=== PATIENT | female | born 2000 | race African-American/Black ===

== ENCOUNTER 2021-10-28 15:07 | Emergency (ER) | payer OTHER ==
[~2021-10-28] VITALS: Ht 170.2 cm; Wt 63.0 kg
[2021-10-28] MEDS ORDERED: KETOROLAC 30MG/ML VIAL IV STA (15:49)
[2021-10-28] MEDS ORDERED: FAMOTIDINE 20MG/2ML VIAL IV STA (15:49)
[2021-10-28] MEDS ORDERED: ONDANSETRON HCL 4MG/2ML INJ IV STA (15:49)
[2021-10-28] MEDS ORDERED: SODIUM CHLORIDE 0.9% 1,000 ML IV ONE (16:00)
[2021-10-28 16:38] LABS: BASOPHILS % 0.9 % (0.0-2.0); CHLORIDE 103 mEq/L (98-107); EOSINOPHILS % 0.7 % (0.0-5.0); HEMATOCRIT. 40.7 % (36.0-48.0); HEMOGLOBIN. 13.9 g/dL (12.0-16.0); LYMPHOCYTES % 24.6 % (20.0-50.0); MEAN CORPUSCULAR HEMOGLOBIN 31.7 pg (28.0-32.0); MEAN CORPUSCULAR VOLUME 93.2 fL (81.0-99.0); MONOCYTES % 7.9 % (2.0-8.0); NEUTROPHILS % 65.9 % (40.0-76.0); RED BLOOD CELL COUNT 4.37 mill/uL (4.2-5.4)
[2021-10-28 16:40] LABS: INR 1.1; PROTHROMBIN TIME 11.4 sec (9.6-11.0)
[2021-10-28 16:44] VITALS: BP 125/47
[2021-10-28 17:19] LABS: MEAN PLATELET VOLUME 11.8 fl (7.4-10.4); PLATELET 112 x1000/uL (130-400)
== END 2021-10-28 18:23 | disposition home or self-care (01) ==
LOC: ER 15:36
DX: R51.9 Headache, unspecified (principal); R55 Syncope and collapse; F12.10 Cannabis abuse, uncomplicated
CPT/HCPCS: 36415; 71045; 80053; 85025; 85610; 93005; 96361; 96374; 96375; 99285; J1885; J2405; J3490; J7030

== ENCOUNTER 2021-11-29 06:40 | Emergency (ER) | payer OTHER ==
[~2021-11-29] VITALS: Ht 162.6 cm; Wt 68.0 kg
[2021-11-29] MEDS ORDERED: ONDANSETRON HCL 4MG/2ML INJ IV STA (06:48)
[2021-11-29] MEDS ORDERED: SODIUM CHLORIDE 0.9% 1,000 ML IV ONE (07:00)
[2021-11-29 07:44] LABS: BASOPHILS % 0.4 % (0.0-2.0); EOSINOPHILS % 0.1 % (0.0-5.0); HEMATOCRIT. 41.5 % (36.0-48.0); HEMOGLOBIN. 13.9 g/dL (12.0-16.0); LYMPHOCYTES % 17.2 % (20.0-50.0); MEAN CORPUSCULAR HEMOGLOBIN 31.5 pg (28.0-32.0); MEAN CORPUSCULAR VOLUME 94.1 fL (81.0-99.0); MONOCYTES % 4.3 % (2.0-8.0); RED BLOOD CELL COUNT 4.41 mill/uL (4.2-5.4); RED CELL DISTRIBUTION WIDTH 12.8 % (11.6-14.6)
[2021-11-29 07:59] LABS: CHLORIDE 105 mEq/L (98-107)
[2021-11-29 08:02] LABS: HCG SCREEN NEGATIVE
[2021-11-29 08:28] LABS: MEAN PLATELET VOLUME 10.7 fl (7.4-10.4); PLATELET 98 x1000/uL (130-400)
[2021-11-29] MEDS ORDERED: TOPUD PO (09:39)
[2021-11-29] MEDS ORDERED: ONDA4TAB50 PO (09:39)
[2021-11-29 10:00] VITALS: BP 112/76
== END 2021-11-29 11:21 | disposition home or self-care (01) ==
LOC: ER 06:40
DX: K52.9 Noninfective gastroenteritis and colitis, unspecified (principal)
CPT/HCPCS: 36415; 74176; 80053; 84703; 85025; 96361; 96374; 99284; J2405; J7030

== ENCOUNTER 2022-08-23 15:10 | Emergency (ER) | payer MEDICAID, OTHER ==
[~2022-08-23] VITALS: Ht 157.5 cm; Wt 64.0 kg
[~2022-08-23 15:10] MED LIST: ONDA4TAB50 PO; TOPUD PO
[2022-08-23 15:18] VITALS: BP 129/81; PULSE 81; RESP 18; TEMP 98; O2SAT 98
[2022-08-23] MEDS ORDERED: FAMOTIDINE 20MG TABLET PO ONE (16:15)
[2022-08-23] MEDS ORDERED: PREDNISONE 20MG TABLET PO ONE (16:15)
[2022-08-23] MEDS ORDERED: DIPHENHYDRAMINE 25MG CAPSULE PO ONE (16:15)
== END 2022-08-23 18:02 | disposition left against medical advice (07) ==
LOC: ER 15:10
DX: Z86.59 Personal history of other mental and behavioral disorders (principal)
CPT/HCPCS: 99284; Q0163; J7512